=== PATIENT | male | born 1965 | race Caucasian/White ===

== ENCOUNTER 2016-10-28 19:59 | Emergency (ER) | payer OTHER ==
[~2016-10-28] VITALS: Ht 177.8 cm; Wt 88.0 kg
[~2016-10-28 19:59] MED LIST: GABA300C3 PO; GLIP5 PO; GLUCTAB PO; LAMO200T PO; LORTA10 PO; NAPR500 PO; OMEP20TA PO; PERC10TA27 PO; PROM25TA5 PO; SILD20 PO; WELL150T PO; XANA0.5T PO; ZOCO40TA PO; ZOFR4TAB3 SL
[2016-10-28 20:14] VITALS: BP 205/119; PULSE 99; RESP 20; TEMP 98.7; O2SAT 100
[2016-10-28] MEDS ORDERED: ALUMINUM/MAGNESIUM/SIMETH 30 ML CUP PO ONE (22:15)
[2016-10-28] MEDS ORDERED: SODIUM CHLOR 0.9% 1000 ML INJ 1,000 ML IV ONE (22:15)
[2016-10-28] MEDS ORDERED: SODIUM CHLORIDE 0.9% FLUSH 10 ML FLUSH IV FLUSH PRN (22:15)
[2016-10-28] MEDS ORDERED: LIDOCAINE VISCOUS 2% SOLN 15 ML UDC PO ONE (22:15)
[2016-10-28] MEDS ORDERED: diphenhydrAMINE HCL 50 MG/ML VIAL IV PUSH ONE (22:30)
[2016-10-28] MEDS ORDERED: PROCHLORPERAZINE INJ 10 MG/2 ML VIAL IV PUSH ONE (22:30)
[2016-10-28 22:59] LABS: AUTOMATED NEUTROPHIL # 6.3 TH/MM3 (1.8-7.7); BASOPHIL % 0.2 % (0.0-2.0); HEMATOCRIT 42.9 % (39.0-51.0); HEMO FLAGS DIFF FINAL; LYMPH % 9.5 % (9.0-44.0); LYMPHOCYTE # 0.7 TH/MM3 (1.0-4.8); MEAN CELL VOLUME 101.2 FL (80.0-100.0); MEAN CORPUSCULAR HGB CONC 33.6 % (32.0-36.0); MONO % 5.9 % (0.0-8.0); NEUT % 84.4 % (16.0-70.0); PLATELET COUNT 262 TH/MM3 (150-450); RED BLOOD COUNT 4.23 MIL/MM3 (4.50-5.90); RED CELL DISTRIBUTION WIDTH 12.6 % (11.6-17.2); WHITE BLOOD COUNT 7.5 TH/MM3 (4.0-11.0)
[2016-10-28 23:18] LABS: ANION GAP 13 MEQ/L (5-15); AST (GOT) 62 U/L (15-37); BICARBONATE 25.2 MEQ/L (21.0-32.0); BLOOD UREA NITROGEN 13 MG/DL (7-18); CHLORIDE 99 MEQ/L (98-107); GLOMERULAR FILTRATION RATE 66 ML/MIN (>89); POTASSIUM 5.6 MEQ/L (3.5-5.1); SODIUM (NA) 137 MEQ/L (136-145)
[2016-10-28 23:19] LABS: ALKALINE PHOSPHATASE 80 U/L (45-117); ALT (GPT) 34 U/L (12-78)
[2016-10-29] MEDS ORDERED: MORPHINE SULFATE 4 MG/ML INJ IV PUSH ONE
[2016-10-29 00:41] LABS: BICARBONATE 23.1 MEQ/L (21.0-32.0); POTASSIUM 4.6 MEQ/L (3.5-5.1)
[2016-10-29 00:56] LABS: CALCIUM-PROTEIN CORRECTED 7.4 MG/DL (8.5-10.1)
[2016-10-29] MEDS ORDERED: FAMO1TAB37 PO (00:58)
--- NOTE | 2016-10-29 00:59 | PD ---
HPI Chief Complaint: Abdominal Pain Time Seen by Provider: 22:13 Travel History International Travel<30 days: No Contact w/Intl Traveler<30days: No Traveled to known affect area: No History of Present Illness HPI 51-year-old male complains of epigastric abdominal pain consistent with gastric ulcers. Pain is constant. It's worse with palpation. Nausea reported. No fever. Similar episodes have occurred in the past and seemed to be correlated with personal stress and anxiety. He reports a lot of personal stress and anxiety lately. PFSH Past Medical History Arthritis: Yes Blood Disorders: No Bipolar Disorder: Yes Anxiety: Yes Depression: Yes Heart Rhythm Problems: No Cardiovascular Problems: Yes (HTN) High Cholesterol: Yes (BORDERLINE) Chest Pain: No Congestive Heart Failure: No Diabetes: Yes (Metformin & Glipizide) Patient Takes Glucophage: Yes Diminished Hearing: No Endocrine: Yes Gastrointestinal Disorders: Yes (HX OF GASTRITIS 2006) Gout: Yes Genitourinary: No Hypertension: Yes Immune Disorder: No Musculoskeletal: Yes (ARTHRITIS IN FOOT) Neurologic: No Reproductive: No Respiratory: No Integumentary: Yes (ECZEMA) Thyroid Disease: No Ulcer: Yes Influenza Vaccination: Yes Past Surgical History Tonsillectomy: Yes Other Surgery: Yes (TONSILECTOMY) Social History Alcohol Use: Yes Tobacco Use: No Substance Use: No (DENIES) Allergies-Medications (Allergen,Severity, Reaction): Coded Allergies: Codeine (Verified Allergy, Unknown, 12/12/15) Reported Meds & Prescriptions Reported Meds & Active Scripts Active Pepcid (Famotidine) 20 Mg Tab 20 Mg PO BID PRN Percocet 10-325 mg (Oxycodone-Acetaminophen 10-325 mg) 1 Tab 1 Tab PO Q4-6H PRN Zocor 40 mg (Simvastatin) 40 Mg Tab 1 Tab PO HS Gabapentin 300 Mg Cap 300 Mg PO BID Zofran ODT (Ondansetron HCl) 4 Mg Tab 4 Mg SL Q6 FOR NAUSEA/VOMITING Omeprazole 20 mg (Omeprazole) 20 Mg Tab 20 Mg PO DAILY 30 Days Glipizide 5 Mg Tab 5 Mg PO BID 30 Days Glucophage XR 24 HR (Metformin HCl) 500 Mg Tab 500 Mg PO BID 30 Days Lamictal (Lamotrigine) 200 Mg Tab 200 Mg PO DAILY 30 Days Xanax 0.5 mg (Alprazolam) Alprazolam 0.5 mg Tab 1 Tab PO BID PRN 14 Days Wellbutrin Sr (Bupropion HCl) 150 Mg Tab 150 Mg PO Q12H 30 Days Phenergan (Promethazine HCl) 25 Mg Tab 25 Mg PO Q6 PRN Reported Revatio (Sildenafil Citrate) 20 Mg Tab 20 Mg PO TID Naprosyn (Naproxen) 500 Mg Tab 500 Mg PO DIRECTED PRN Hydrocodone/Acetaminophen 10 mg/325 mg 1 Tab 1 Tab PO BID PRN Review of Systems Except as stated in HPI: all other systems reviewed are Neg Physical Exam Narrative GENERAL: 51-year-old male well-nourished well-developed mild to moderate distress SKIN: Focused skin assessment warm/dry. HEAD: Atraumatic. Normocephalic. EYES: Pupils equal and round. No scleral icterus. No injection or drainage. ENT: No nasal bleeding or discharge. Mucous membranes pink and moist. NECK: Trachea midline. No JVD. CARDIOVASCULAR: Regular rate and rhythm. No murmur appreciated. RESPIRATORY: No accessory muscle use. Clear to auscultation. Breath sounds equal bilaterally. GASTROINTESTINAL: Minimal epigastric tenderness. Soft. MUSCULOSKELETAL: No obvious deformities. No clubbing. No cyanosis. No edema. NEUROLOGICAL: Awake and alert. No obvious cranial nerve deficits. Motor grossly within normal limits. Normal speech. PSYCHIATRIC: Appropriate mood and affect; insight and judgment normal. Data Data Last Documented VS Vital Signs Date Time Temp Pulse Resp B/P Pulse Ox O2 Delivery O2 Flow Rate FiO2 10/29/16 01:20 88 16 164/90 97 Room Air 10/28/16 20:14 98.7 Vital signs reviewed Orders Complete Blood Count With Diff (10/28/16 22:13) Comprehensive Metabolic Panel (10/28/16 22:13) Lipase (10/28/16 22:13) Lactic Acid (10/28/16 22:13) Iv Access Insert/Monitor (10/28/16 22:13) Ecg Monitoring (10/28/16 22:13) Oximetry (10/28/16 22:13) Sodium Chloride 0.9% Flush (Ns Flush) (10/28/16 22:15) Al-Mag Hy-Si 40-40-4 Mg/Ml Liq (Mag-Al P (10/28/16 22:15) Lidocaine 2% Viscous (Xylocaine 2% Visco (10/28/16 22:15) Sodium Chlor 0.9% 1000 Ml Inj (Ns 1000 M (10/28/16 22:15) Prochlorperazine Inj (Compazine Inj) (10/28/16 22:30) Diphenhydramine Inj (Benadryl Inj) (10/28/16 22:30) Basic Metabolic Panel (Bmp) (10/28/16 23:25) Lactic Acid (10/28/16 23:25) Morphine Inj (Morphine Inj) (10/29/16 00:00) Protein Corrected Calcium(Pcc) (10/28/16 23:00) Labs Laboratory Tests Test 10/28/16 10/28/16 10/28/16 22:30 23:00 23:56 White Blood Count 7.5 TH/MM3 Red Blood Count 4.23 MIL/MM3 Hemoglobin 14.4 GM/DL Hematocrit 42.9 % Mean Corpuscular Volume 101.2 FL Mean Corpuscular Hemoglobin 34.0 PG Mean Corpuscular Hemoglobin 33.6 % Concent Red Cell Distribution Width 12.6 % Platelet Count 262 TH/MM3 Mean Platelet Volume 7.2 FL Neutrophils (%) (Auto) 84.4 % Lymphocytes (%) (Auto) 9.5 % Monocytes (%) (Auto) 5.9 % Eosinophils (%) (Auto) 0.0 % Basophils (%) (Auto) 0.2 % Neutrophils # (Auto) 6.3 TH/MM3 Lymphocytes # (Auto) 0.7 TH/MM3 Monocytes # (Auto) 0.4 TH/MM3 Eosinophils # (Auto) 0.0 TH/MM3 Basophils # (Auto) 0.0 TH/MM3 CBC Comment DIFF FINAL Differential Comment Sodium Level 137 MEQ/L 139 MEQ/L Potassium Level 5.6 MEQ/L 4.6 MEQ/L Chloride Level 99 MEQ/L 108 MEQ/L Carbon Dioxide Level 25.2 MEQ/L 23.1 MEQ/L Anion Gap 13 MEQ/L 8 MEQ/L Blood Urea Nitrogen 13 MG/DL 12 MG/DL Creatinine 1.16 MG/DL 0.87 MG/DL Estimat Glomerular Filtration 66 ML/MIN 92 ML/MIN Rate Random Glucose 285 MG/DL 238 MG/DL Lactic Acid Level 3.0 mmol/L 1.9 mmol/L Calcium Level 9.9 MG/DL 7.4 MG/DL Total Bilirubin 1.0 MG/DL Aspartate Amino Transf 62 U/L (AST/SGOT) Alanine Aminotransferase 34 U/L (ALT/SGPT) Alkaline Phosphatase 80 U/L Total Protein 9.0 GM/DL 7.1 GM/DL Albumin 4.4 GM/DL Lipase 88 U/L Protein Corrected Calcium 7.4 MG/DL MDM Medical Decision Making Medical Screen Exam Complete: Yes Emergency Medical Condition: Yes Medical Record Reviewed: Yes Differential Diagnosis Constipation, Gastritis, Acute Cholecystitis, Biliary Colic, Pancreatitis, AMATO , Hepatitis, Bowel Obstruction, Cystitis, Mesenteric Ischemia, AAA, Appendicitis , Renal Stone/Hydronephrosis, GERD, perforated viscous Narrative Course CBC & BMP Diagram 10/28/16 22:30 10/28/16 23:00 LFTs are essentially normal There is an elevation lactic acid at 3.0 however this was considered most likely due to tourniquet time Repeat lactic acid was 1.9. The patient is resting comfortably and feels better, is alert and in no distress. The patients results and examination findings were discussed. The repeat examination is unremarkable and benign. The history, exam, diagnostic testing, and current condition do not suggest any significant pathology to warrant further testing, continued ED treatment, admission, or surgical evaluation at this point. The vital signs have been stable. The patient does not have uncontrollable pain, intractable vomiting, or other significant symptoms. The patient's condition is stable and appropriate for discharge. The patient will pursue further outpatient evaluation with a primary care physician or other designated or consulting physician as indicated in the discharge instructions. The patient expressed understanding and was agreeable with this plan. Diagnosis Primary Impression: Gastritis Qualified Code: K29.70 - Gastritis without bleeding, unspecified chronicity, unspecified gastritis type Referrals: Daisy Chambers MD 2 days Additional Instructions: You have a choice when it comes to health care, and we are glad that you chose [facility]. Hopefully, we have met your expectations on today's visit. You are welcome to return to [facility] at any time, as we are committed to meeting the health care needs of our community. Med/Other Pt SpecificInfo: Prescription(s) given Scripts Famotidine (Pepcid)20 Mg Tab20 Mg PO BID PRN (REFLUX) #60 TAB Ref 0 Prov:Anton Alfaro MD 10/29/16 Disposition: 01 DISCHARGE HOME Condition: Stable Anton Alfaro MD Oct 29, 2016 00:59
[2016-10-29 01:20] VITALS: BP 164/90; PULSE 88; RESP 16; O2SAT 97
== END 2016-10-29 01:20 | disposition home or self-care (01) ==
LOC: NEPC 19:59
DX: K29.70 Gastritis, unspecified, without bleeding (principal); Z87.11 Personal history of peptic ulcer disease; I10 Essential (primary) hypertension; E78.00 Pure hypercholesterolemia, unspecified; E11.9 Type 2 diabetes mellitus without complications; F31.9 Bipolar disorder, unspecified; Z79.84 Long term (current) use of oral hypoglycemic drugs; M19.90 Unspecified osteoarthritis, unspecified site
CPT/HCPCS: 80048; 80053; 83605; 83690; 84155; 85025; 96361; 96374; 96375; 99283; J0780; J1200; J2270; J7030

== ENCOUNTER 2017-07-13 09:38 | Emergency (ER) | payer OTHER ==
[~2017-07-13] VITALS: Ht 177.8 cm; Wt 85.0 kg
[~2017-07-13 09:38] MED LIST changes: +FAMO1TAB37 PO
[2017-07-13 09:53] VITALS: BP 127/75; PULSE 90; RESP 20; TEMP 97.8; O2SAT 97
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
[2017-07-13] MEDS ORDERED: TETANUS/DIPHTHERIA TOXOID ADULT 0.5 ML VIAL IM ONE (10:45)
[2017-07-13 11:49] LABS: AUTOMATED NEUTROPHIL # 5.8 TH/MM3 (1.8-7.7); BASOPHIL % 0.1 % (0.0-2.0); EOSINOPHIL % 0.3 % (0.0-4.0); HEMATOCRIT 34.6 % (39.0-51.0); HEMOGLOBIN 11.9 GM/DL (13.0-17.0); LYMPH % 12.5 % (9.0-44.0); LYMPHOCYTE # 0.9 TH/MM3 (1.0-4.8); MEAN CORPUSCULAR HEMOGLOBIN 35.4 PG (27.0-34.0); MEAN CORPUSCULAR HGB CONC 34.4 % (32.0-36.0); MEAN PLATELET VOLUME 6.8 FL (7.0-11.0); MONO % 8.7 % (0.0-8.0); MONOCYTE # 0.6 TH/MM3 (0-0.9); NEUT % 78.4 % (16.0-70.0); PLATELET COUNT 218 TH/MM3 (150-450); RED BLOOD COUNT 3.36 MIL/MM3 (4.50-5.90); RED CELL DISTRIBUTION WIDTH 13.1 % (11.6-17.2); WHITE BLOOD COUNT 7.4 TH/MM3 (4.0-11.0)
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
[2017-07-13 11:55] LABS: PROTHROMBIN TIME - PATIENT 9.7 SEC (9.8-11.6)
[2017-07-13 12:10] LABS: BICARBONATE 25.2 MEQ/L (21.0-32.0); CALCIUM 8.9 MG/DL (8.5-10.1); CREATININE 0.79 MG/DL (0.60-1.30)
[2017-07-13] MEDS ORDERED: IOHEXOL 350 MG/ML 10 ML VIAL (for RAD DIAG) IVCONTRAST ONE (13:00)
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
[2017-07-13] MEDS ORDERED: IBUP-232 PO (13:58)
[2017-07-13] MEDS ORDERED: LIDO1ADH4 TOPICAL (13:58)
[2017-07-13] MEDS ORDERED: traMADol HCL 50 MG TAB PO ONE (14:00)
[2017-07-13] MEDS ORDERED: LIDOCAINE HCL 1% 30 ML VIAL INFIL ONE (14:00)
[2017-07-13] MEDS ORDERED: KETOROLAC TROMETHAMINE 30 MG/ML (IVP) VIAL IV PUSH ONE (14:00)
[2017-07-13] MEDS ORDERED: LIDOCAINE HCL 1% PF 30 ML VIAL INFIL ONE (14:15)
[2017-07-13] MEDS ORDERED: CEPH-460 PO (14:43)
--- NOTE | 2017-07-13 14:44 | PD ---
Physical Exam Date Seen by Provider: Jul 13, 2017 Time Seen by Provider: 14:41 Narrative I was asked by Dr. Ortiz to repair laceration to the patient's face and left hand. Please see his documentation for full history and physical. Data Data Last Documented VS Vital Signs Date Time Temp Pulse Resp B/P (MAP) Pulse Ox O2 Delivery O2 Flow Rate FiO2 07/13/17 09:53 97.8 90 20 127/75 (92) 97 Orders Orders Tetanus/Diphtheria Tox Adult (Tetanus/Di (07/13/17 10:45) Complete Blood Count With Diff (07/13/17 10:33) Basic Metabolic Panel (Bmp) (07/13/17 10:33) Prothrombin Time / Inr (Pt) (07/13/17 10:33) Act Partial Throm Time (Ptt) (07/13/17 10:33) Ct Brain W/O Iv Contrast(Rout) (07/13/17 10:33) Iv Access Insert/Monitor (07/13/17 10:33) Ecg Monitoring (07/13/17 10:33) Oximetry (07/13/17 10:33) Ct Abd/Pel W Iv Contrast(Rout) (07/13/17 10:33) Ct Facial Bones W/O Iv Cont (07/13/17 10:33) Hand, Complete ([id number]) (07/13/17 10:33) Ct Thorax/ Chest W Iv Contrast (07/13/17 10:33) Iohexol 350 Inj (Omnipaque 350 Inj) (07/13/17 13:00) Tramadol (Ultram) (07/13/17 14:00) Ketorolac Inj (Toradol Inj) (07/13/17 14:00) Lidocaine Pf 1% Inj (Xylocaine-Mpf 1% In (07/13/17 14:15) Ed Discharge Order (07/13/17 14:40) Labs Laboratory Tests Test 07/13/17 11:20 White Blood Count 7.4 TH/MM3 Red Blood Count 3.36 MIL/MM3 Hemoglobin 11.9 GM/DL Hematocrit 34.6 % Mean Corpuscular Volume 103.0 FL Mean Corpuscular Hemoglobin 35.4 PG Mean Corpuscular Hemoglobin Concent 34.4 % Red Cell Distribution Width 13.1 % Platelet Count 218 TH/MM3 Mean Platelet Volume 6.8 FL Neutrophils (%) (Auto) 78.4 % Lymphocytes (%) (Auto) 12.5 % Monocytes (%) (Auto) 8.7 % Eosinophils (%) (Auto) 0.3 % Basophils (%) (Auto) 0.1 % Neutrophils # (Auto) 5.8 TH/MM3 Lymphocytes # (Auto) 0.9 TH/MM3 Monocytes # (Auto) 0.6 TH/MM3 Eosinophils # (Auto) 0.0 TH/MM3 Basophils # (Auto) 0.0 TH/MM3 CBC Comment DIFF FINAL Differential Comment Prothrombin Time 9.7 SEC Prothromb Time International Ratio 1.0 RATIO Activated Partial Thromboplast Time 24.5 SEC Blood Urea Nitrogen 9 MG/DL Creatinine 0.79 MG/DL Random Glucose 173 MG/DL Calcium Level 8.9 MG/DL Sodium Level 138 MEQ/L Potassium Level 4.6 MEQ/L Chloride Level 102 MEQ/L Carbon Dioxide Level 25.2 MEQ/L Anion Gap 11 MEQ/L Estimat Glomerular Filtration Rate 103 ML/MIN MDM Supervised Visit with REINALDO: No Procedures Procedure Narrative LACERATION LOCATION: Face LENGTH: 2 cm NUMBER OF STITCHES/JOSÉ: Dermabond REPAIR: The area of the laceration was prepped with Betadine and sterilely draped. The wound was copiously irrigated and explored without evidence of foreign body, tendon injury or neurovascular injury. The wound was closed using Dermabond. This was a single layer repair. A sterile dressing was applied. The patient was advised to keep the dressing clean and dry. Patient tolerated the procedure well. LACERATION LOCATION: Left volar hand LENGTH: 2 cm NUMBER OF STITCHES/JOSÉ: 3 simple interrupted sutures REPAIR: The area of the laceration was prepped with Betadine and sterilely draped. The laceration was infiltrated with .1% lidocaine The wound was copiously irrigated and explored without evidence of foreign body, tendon injury or neurovascular injury. The wound was closed using 4-0 Prolene. This was a single layer repair. A sterile dressing was applied. The patient was advised to keep the dressing clean and dry. Patient tolerated the procedure well. Diagnosis Primary Impression: Fracture of rib of left side Qualified Codes: S22.32XA - Fracture of one rib, left side, initial encounter for closed fracture Additional Impressions: Facial laceration Qualified Codes: S01.81XA - Laceration without foreign body of other part of head, initial encounter Laceration of left hand Qualified Codes: S61.412A - Laceration without foreign body of left hand, initial encounter Patient Instructions: General Instructions Additional Instruction: Wound care daily. Head trauma instructions given. Suture removal in 10 days. Scripts Lidocaine (Lidoderm) 5 % Adh..patch 1 PATCH TOPICAL DAILY for Pain, #20 Prov: Mook Ortiz MD 07/13/17 Ibuprofen (Ibuprofen) 600 Mg Tab 600 MG PO TID for Pain, #60 TAB 0 Refills Prov: Mook Ortiz MD 07/13/17 Disposition: 01 DISCHARGE HOME Condition: Stable Marisa Green KIRK Jul 13, 2017 14:44
== END 2017-07-13 14:50 | disposition home or self-care (01) ==
LOC: NEPC 09:38
DX: S22.32XA Fracture of one rib, left side, initial encounter for closed fracture (principal); S01.81XA Laceration without foreign body of other part of head, initial encounter; S61.412A Laceration without foreign body of left hand, initial encounter; R07.89 Other chest pain; I10 Essential (primary) hypertension; E11.9 Type 2 diabetes mellitus without complications; Z88.5 Allergy status to narcotic agent; Y29.XXXA Contact with blunt object, undetermined intent, initial encounter
CPT/HCPCS: 12001; 12011; 70450; 70486; 71260; 73130; 74177; 80048; 85025; 85610; 85730; 90471; 90714; 99285; J1885; Q9967

== ENCOUNTER 2017-10-13 09:57 | Inpatient (IN) ==
[2017-10-13] MEDS ORDERED: Haloperidol Inj 5 MG/ML Ampul IM ONE (10:52)
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
[2017-10-13 11:05] LABS: Baso % (Auto) 0.3 % (0.0-2.0); Eos % (Auto) 0.6 % (0.0-4.0); Hematocrit 34.3 % (39.0-51.0); Hemoglobin 11.7 gm/dL (13.0-17.0); Lymph # (Auto) 1.4 th/mm3 (1.0-4.8); Lymph % (Auto) 19.9 % (9.0-44.0); Mean Corpuscular HGB Conc 34.1 % (32.0-36.0); Mean Corpuscular Hemoglobin 35.1 pg (27.0-34.0); Mean Corpuscular Volume 103.1 fL (80.0-100.0); Mean Platelet Volume 7.6 fL (7.0-11.0); Mono # (Auto) 0.8 th/mm3 (0.0-0.9); Mono % (Auto) 10.6 % (0.0-8.0); Neut # (Auto) 4.9 th/mm3 (1.8-7.7); Neut % (Auto) 68.6 % (16.0-70.0); Platelet Count 220 th/mm3 (150-450); Red Blood Count 3.32 mil/mm3 (4.50-5.90); Red Cell Distribution Width 12.5 % (11.6-17.2); White Blood Count 7.2 th/mm3 (4.0-11.0)
--- NOTE | 2017-10-13 11:08 | ED ---
HPI - Psych - General Chief Complaint: Psychiatric Symptoms Stated Complaint: Psych Eval/DBPD - Related Data Home Medications Medication Instructions Recorded Confirmed bupropion HCl 150 mg PO QAM 10/13/17 10/13/17 lamotrigine 200 mg PO DAILY 10/13/17 10/13/17 lisinopril 10 mg PO DAILY 10/13/17 10/13/17 metformin 500 mg PO BID 10/13/17 10/13/17 omeprazole 20 mg PO DAILY 10/13/17 10/13/17 Allergies Allergy/AdvReac Type Severity Reaction Status Date / Time codeine Allergy Unknown Vomiting Verified 10/13/17 10:04 PMFSH - History History Provided By: Patient - Medical History Medical History: Medical History (Last Updated 10/13/17 @ 10:06 by Natalia Calix) Diabetes Hypertension Manic depression Schizophrenia - Surgical History Surgical History: Surgical History (Last Updated 10/13/17 @ 10:07 by Natalia Calix) No history of previous surgery - Tobacco History Second Hand Smoke Exposure: Yes Tobacco Use In Past 30 Days: Yes Smoking Status: Current some day smoker Tobacco Type: Smokeless Tobacco - Alcohol History How Often Do You Have a Drink Containing Alcohol: Never - Substance Use History Substance History: No History of Abuse - Travel History Recent Travel in the [place] Within the Last 8 Weeks: No Recent Travel Out of the Country Within the Last 8 Weeks: No - Immunization History Tetanus Immunization: >5 Years Hx Influenza Vaccine This Season: Yes Psychiatric History - Psychiatric History Psychiatric Treatment History: History of Psychiatric Treatment, History Substance Abuse Treatment, History of Hospitalization in a Psychiatric Facility , History of Community Mental Health Treatment Initial Documented Vital Signs Temperature 97.8 F 10/13/17 10:05 Pulse Rate 112 H 10/13/17 10:05 Respiratory Rate 10/13/17 10:05 Blood Pressure 178/103 H 10/13/17 10:05 Pulse Oximetry 100 10/13/17 10:05 Last Documented Vital Signs Temperature 97.8 F 10/13/17 10:05 Pulse Rate 112 H 10/13/17 10:05 Respiratory Rate 20 10/13/17 10:05 Blood Pressure 178/103 H 10/13/17 10:05 Pulse Oximetry 100 10/13/17 10:05
[2017-10-13 11:18] LABS: Alanine Aminotransferase 20 U/L (12-78); Albumin 4.6 g/dL (3.4-5.0); Anion Gap 12 meq/L (5-15); Aspartate Aminotransferase 18 U/L (15-37); Blood Urea Nitrogen 11 mg/dL (7-18); Calcium 9.1 mg/dL (8.5-10.1); Carbon Dioxide 24.5 meq/L (21.0-32.0); Chloride 102 meq/L (98-107); Glomerular Filtration Rate 77 mL/min (>89); Glucose,Random 251 mg/dL (74-106); Potassium 3.8 meq/L (3.5-5.1); Sodium 138 meq/L (136-145)
[2017-10-13 11:28] LABS: Alkaline Phosphatase 91 U/L (45-117); Total Protein 7.9 g/dL (6.4-8.2)
[2017-10-13 14:57] LABS: Amphetamine Screen,Urine Neg (Neg); Barbiturate Screen,Urine Neg (Neg); Cannabinoid Screen,Urine Neg (Neg); Cocaine Screen,Urine Neg (Neg)
[2017-10-13 15:03] LABS: Opiate Screen,Urine Neg (Neg)
[2017-10-14] MEDS: Lisinopril 10 MG Tablet PO SCH (09:55)
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
[2017-10-14] MEDS ORDERED: buPROPion 150 MG XL 24 HR Tablet PO SCH (15:00)
--- NOTE | 2017-10-15 08:32 | P.HPPSY ---
Provisional Diagnosis Admission Date: October 14, 2017 12:28 [place].: 1. Bipolar disorder, presently depressed, moderate [place] II.: Deferred Competence Certification of Person's Competence To Provide Express and Informed Consent I have personally examined Ben Merrill, a person being served at [facility] on, October 15, 2017 0832. Express and informed consent means consent voluntarily given in writing, by a competent person, after sufficient explanation and disclosure of the subject matter involved to enable the person to make a knowing and willful decision without any element of force, fraud, deceit, duress, or other form of constraint or coercion. This person is 18 years of age or older, is not now known to be incompetent to consent to treatment with a guardian advocate, and does not have a health care surrogate or proxy currently making medical treatment decisions. I have found this person to be one of the following: [X] Competent to provide express and informed consent, as defined above, for voluntary admission to this facility and is competent to provide express and informed consent for treatment. He/she has the consistent capacity to make well reasoned, willful, and knowing decisions concerning his or her medical or mental health treatment. The person fully and consistently understands the purpose of the admission for examination/placement and is fully capable of personally exercising all rights assured under [place] [] Incompetent to provide express and informed consent to voluntary admission, and this is incompetent to provide express and informed consent to treatment. The person must be transferred to involuntary status and a petition for a guardian advocate filed with the Circuit Court. [] Refusing to provide express and informed consent to voluntary admission but is competent to provide express and informed consent for treatment. The person must be discharged or transferred to involuntary status. Form shall be completed within 24 hours of a person's arrival at the receiving facility and filed in the clinical record of each person: 1. Admitted on a voluntary basis 2. Permitted to provide express and informed consent to his/her own treatment 3. Allowed to transfer from involuntary to voluntary status 4. Prior to permitting a person to consent to his or her own treatment after having been previously found incompetent to consent to treatment. History of Present Illness Capacity: Has capacity Chief Complaint: Mood instability History of Present Illness: Mr. Merrill is 52-year-old male with a reported history of bipolar disorder versus schizophrenia who presents under [place] from [place] [facility]. Patient was evaluated by the psychiatric nurse practitioner in the ED, and I note that conflict with adolescent son is a stressor, although interestingly patient does not mention this in our interaction. Reviewing the electronic medical record, I note that the patient was admitted in [address] Quintana. Patient seen and examined with nurseRakesh. Chart reviewed. Case discussed with nursing staff. On my examination today, the patient says that he has been experiencing worsening mood instability 5 days. Sleep is poor. Appetite is good. Occasional hopeless and worthless feelings. He has also been "hearing shit, quotes." he also reports occasional command auditory hallucinations to " be aware of this or that." These voices occur inside his head and are intermittent. No reported command auditory hallucinations to hurt self/others. Denies SI or HI at this time. No delusions. No other mood symptoms. Remainder of the psychiatric ROS is negative. Past psychiatric history: Patient reports previous diagnoses as noted above. He follows at the [facility] clinic with Dr. Palmer. Most recent psychiatric admission was here under Dr. Quintana. He denies a history of suicide attempts and when asked about history of violent behavior he says "not so much." Outpatient medications include Wellbutrin 150 mg daily, Lamictal 200 mg at bedtime and Xanax. Family history: The patient reports that his sister has bipolar disorder. He denies a family history of suicide. Chemical dependency history: Patient denies any abuse of drugs or alcohol presently but does admit to having had an alcohol problem in the past. Social history: The patient has lived on the [facility] since 1993. He was 4 years ago. He has a 17-year-old son. He enjoys bicycling, going to the beach and sports as well as hunting. He denies any access to guns or firearms however saying that her friend has secured his weapons. 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 He served in the [employer]. When I ask about trauma history he will only say that this is "debatable." He does not describe any PTSD symptoms. The patient does not believe that his trauma history he has any bearing on his current presentation. He is a Religious. Past medical history: Patient reports a history of diabetes, hypertension, chronic pain, hepatitis C status post interferon treatment. - Inpatient Certification I certify that the inpatient services were ordered in accordance with Medicare regulations governing the order. This includes certification that hospital inpatient services are reasonable and necessary and in the case of services not specified as inpatient-only under 42 CFR 419.22(n), that they are appropriately provided as inpatient services in accordance to with the 2-midnight benchmark under 43 CFR 412.3(e) I certify that inpatient psychiatric hospital services are medically necessary. Evaluation and treatment and/or diagnostic testing are expected to improve the patient's condition. The patient needs on a daily basis, active treatment furnished directly by or requiring the supervision of inpatient psychiatric facility personnel. Estimated Total Length of Stay (Days): 7 (5-7) Plans for Post Hospital Care: Home Review of Systems All other systems reviewed negative except as stated in HPI PMFSH - History History Provided By: Patient - Medical History Medical History: Medical History (Last Reviewed 10/14/17 @ 14:31 by KIRK Llanes) Diabetes Hypertension Manic depression Schizophrenia - Surgical History Surgical History: Surgical History (Last Reviewed 10/14/17 @ 14:31 by KIRK Llanes) No history of previous surgery - Tobacco History Second Hand Smoke Exposure: Yes Tobacco Use In Past 30 Days: Yes Smoking Status: Former smoker Tobacco Type: Cigarettes - Alcohol History How Often Do You Have a Drink Containing Alcohol: Monthly or less - Substance Use History Substance History: Past History - Travel History Recent Travel in the USA Within the Last 8 Weeks: No Recent Travel Out of the Country Within the Last 8 Weeks: No - Immunization History Tetanus Immunization: >5 Years Hx Influenza Vaccine This Season: Yes Quality Measures - Patient Strengths Patient's strengths (minimum of 2): In a monitored setting. Verbally fluent. Medications and Allergies Active Medications: Active Medications Al Hydrox/Mg Hydrox/Simethicone (Mag-Al Plus Susp Liq) 30 ml PO Q6H PRN PRN Reason: DYSPEPSIA Bupropion HCl (Wellbutrin Sr) 150 mg PO DAILY JEMAL Diphenhydramine HCl (Benadryl) 50 mg PO HS PRN PRN Reason: INSOMNIA Hydroxyzine HCl (Atarax) 50 mg PO Q6H PRN PRN Reason: ANXIETY Lisinopril (Prinivil) 10 mg PO DAILY JEMAL Last Admin: 10/14/17 09:55 Dose: 10 mg Lisinopril (Prinivil) 10 mg PO DAILY [facility] Last Admin: 10/14/17 09:54 Dose: 500 mg Metformin HCl (Glucophage) 500 mg PO BID [facility] Non-Formulary Medication (Lamotrigine [Lamotrigine]) 200 mg PO DAILY [facility] Non-Formulary Medication (Omeprazole [Omeprazole]) 20 mg PO DAILY [facility] Allergies Allergy/AdvReac Type Severity Reaction Status Date / Time codeine Allergy Unknown Vomiting Verified 10/13/17 10:04 Home Medications Medication Instructions Recorded Confirmed Type bupropion HCl 150 mg PO QAM 10/13/17 10/13/17 History lamotrigine 200 mg PO DAILY 10/13/17 10/13/17 History lisinopril 10 mg PO DAILY 10/13/17 10/13/17 History metformin 500 mg PO BID 10/13/17 10/13/17 History omeprazole 20 mg PO DAILY 10/13/17 10/13/17 History Results - Labs CBC & Chem 7: 10/13/17 10:17 10/13/17 10:17 Labs: Laboratory Results - last 24 hr 10/14/17 09:59 POC Glucose 351 H Laboratories reviewed. Macrocytic anemia noted. Hyperglycemia noted. Decreased GFR noted. Exam Vital signs: Vital Signs 10/14/17 12:07 10/14/17 15:18 10/15/17 06:14 Temperature 98.7 F 97.4 F L Pulse Rate 93 H 108 H 90 Respiratory Rate 18 19 17 Blood Pressure 148/84 H 124/84 150/85 H Pulse Oximetry 98 Intake & Output 10/14/17 10/15/17 10/15/17 18:59 06:59 18:59 Weight 76.6 kg Other: Weight On Admission 76.6 kg Narrative: Physical exam completed by ED provider. On my examination today, the patient appears to be in no acute physical distress. No motor abnormalities noted. Labs and vital signs reviewed: Mental Status Examination Appearance: Appropriate Consciousness: Alert Orientation: x4 Motor Activity: Normal gait Speech: Unremarkable Language: Adequate Fund of Knowledge: Adequate Attention and Concentration: Adequate Memory: Unremarkable Mood: Other (Depressed) Affect: Other (Restricted) Thought Process & Associations: Intact, Logical, Linear Thought Content: Appropriate, Hallucinations Hallucination Type: Auditory, Command (No CAH to hurt self/others) Delusion Type: None Suicidal Ideation: No Suicidal Plan: No Suicidal Intention: No Homicidal Ideation: No Homicidal Plan: No Homicidal Intention: No Insight: Fair Judgment: Impulsive Assessment and Plan - Assessment (1) Bipolar affective disorder, depressed, moderate Code(s): F31.32 - Bipolar disorder, current episode depressed, moderate Status : Acute - Plan Plan: 52-year-old male with psychiatric history as detailed above who presents under a [place] act. On my examination today, the patient reports worsening mood instability, chiefly dysphoric for about the last 5 days. He has been off of his psychotropic medications for the same interval. Although he presently denies any suicidal or homicidal ideation, he has been experiencing possible psychotic symptoms (although he does note that the voices occur inside his head , and so this may constitute more of a internal dialog been a betsy amelia hallucination). In any event, the patient does seem to be in need of inpatient admission for stabilization and also to monitor for any impairments in safety. Admit inpatient. Voluntary status. Patient has been off of his Lamictal for 5 days. We are therefore forced to resume titration at the lowest dose, 25 mg at bedtime. I have explained the necessity of this adjustment to the patient. As this will not provide adequate mood stabilization, we will augment, perhaps temporarily, with Latuda 40 mg with dinner. Check EKG for QTC. I will continue the patient's Wellbutrin. No reported history of seizure disorder or eating disorder. I have reviewed the controlled substances database [employer] for patient's Xanax and Percocet, and I will prescribe these as documented in the database. R/B/A for medications discussed at length with patient. Diabetic diet. Sliding scale insulin. Check CBC and vitamin B12 for macrocytic anemia. Check a BMP, hemoglobin A1c and lipid panel. Vitals every shift. Counselor to see. Disposition planning. Estimated length of stay: 5-7 days. Justification for Continued Inpatient Stay: Med changes. Monitoring for impairment in safety. High risk for decompensation in less restrictive setting. Discharge Planning: Pending psychiatric stabilization Request Healthcare Surrogate/Guardian Advocate?: No
[2017-10-15] MEDS ORDERED: Dextrose 50% in Water 50 ML Vial IV.PUSH PRN (08:39)
[2017-10-15] MEDS ORDERED: Non-Formulary Drug (Lamotrigine [Lamotrigine] 200 MG) PO SCH (09:00)
[2017-10-15] MEDS ORDERED: Lisinopril 20 MG Tablet PO SCH (09:00)
[2017-10-15] MEDS: buPROPion 150 MG 12 HR Tablet PO SCH (09:12)
[2017-10-15] MEDS: Lisinopril 10 MG Tablet PO SCH (09:12)
[2017-10-15] MEDS: ALPRAZolam 0.5 MG Tablet PO PRN ×2 (10:32→20:39)
[2017-10-15] MEDS: oxyCODONE/Acetaminophen 10/325 Tablet PO PRN ×3 (10:33→20:38)
[2017-10-15] MEDS: Aluminum/Magnesium/Simethacone Susp 30 ML UDC PO PRN (10:35)
[2017-10-15] MEDS ORDERED: Acetaminophen 325 MG Tablet PO PRN (11:20)
[2017-10-15 11:29] LABS: Baso % (Auto) 0.3 % (0.0-2.0); Eos # (Auto) 0.1 th/mm3 (0.0-0.4); Eos % (Auto) 1.8 % (0.0-4.0); Hematocrit 36.8 % (39.0-51.0); Hemoglobin 12.4 gm/dL (13.0-17.0); Lymph # (Auto) 1.2 th/mm3 (1.0-4.8); Lymph % (Auto) 25.2 % (9.0-44.0); Mean Corpuscular HGB Conc 33.7 % (32.0-36.0); Mean Corpuscular Hemoglobin 34.7 pg (27.0-34.0); Mean Corpuscular Volume 102.9 fL (80.0-100.0); Mean Platelet Volume 7.5 fL (7.0-11.0); Mono # (Auto) 0.4 th/mm3 (0.0-0.9); Mono % (Auto) 9.2 % (0.0-8.0); Neut # (Auto) 2.9 th/mm3 (1.8-7.7); Neut % (Auto) 63.5 % (16.0-70.0); Platelet Count 220 th/mm3 (150-450); Red Blood Count 3.58 mil/mm3 (4.50-5.90); Red Cell Distribution Width 12.6 % (11.6-17.2); White Blood Count 4.6 th/mm3 (4.0-11.0)
[2017-10-15 11:52] LABS: Calcium 9.3 mg/dL (8.5-10.1); Carbon Dioxide 28.6 meq/L (21.0-32.0); Potassium 3.9 meq/L (3.5-5.1)
[2017-10-15 11:54] LABS: Chol/HDL Ratio 3.22 Ratio
[2017-10-15] MEDS: Insulin NovoLOG Aspart Correctional Sugar Inj SQ SCH ×2 (16:39→21:04)
--- NOTE | 2017-10-15 17:25 | P.CON ---
History of Present Illness Service: Hospitalist Consult date: 10/15/17 Requesting Physician: Ozzie Prado Reason for Consult: Medication management Primary Care Provider: No Primary Care Physician Family Provider: [facility] Chief Complaint: Mood instability; DM; hypertension. "I do not feel good" History of Present Illness: Patient is a 52-year-old white male with a past medical history that includes hypertension and diabetes. He was admitted under [place] act after making suicidal statements to the police. Psychiatric history includes bipolar disorder and schizophrenia. He has had a prior admit for exacerbation of these conditions in 2015. [facility] that they are managing his diabetes with metformin and possibly glipizide. His blood pressure is currently being controlled by lisinopril-he believes the dose is 10 mg but he is not sure. Admits to me that he has been having trouble keeping up with his medications and has poor control of his diabetes and high blood pressure. Denies any chest pain or shortness of breath. Denies any nausea vomiting or diarrhea. He has had a good appetite. Normal urination and bowel movements. Reports to me that he is using the time here to get himself "back together". Review of Systems All other systems reviewed negative except as stated in HPI PMFSH - History History Provided By: Patient, Medical Record - Medical History Medical History: Medical History (Last Reviewed 10/16/17 @ 14:20 by KIRK Baker) Diabetes Hypertension Manic depression Schizophrenia - Surgical History Surgical History: Surgical History (Last Reviewed 10/16/17 @ 14:20 by KIRK Baker) No history of previous surgery - Family History Family History: Family History (Last Reviewed 10/16/17 @ 14:21 by KIRK Baker) Other Family history unknown - Tobacco History Second Hand Smoke Exposure: Yes Tobacco Use In Past 30 Days: Yes Smoking Status: Former smoker Tobacco Type: Cigarettes - Alcohol History How Often Do You Have a Drink Containing Alcohol: Monthly or less - Substance Use History Substance History: Past History - Travel History Recent Travel in the [place] Within the Last 8 Weeks: No Recent Travel Out of the Country Within the Last 8 Weeks: No - Immunization History Tetanus Immunization: >5 Years Hx Influenza Vaccine This Season: Yes Medications and Allergies Active Medications: Active Medications Acetaminophen (Tylenol) 650 mg PO Q4H PRN PRN Reason: Pain 1-6 Al Hydrox/Mg Hydrox/Simethicone (Mag-Al Plus Susp Liq) 30 ml PO Q6H PRN PRN Reason: DYSPEPSIA Last Admin: 10/15/17 10:35 Dose: 30 ml Alprazolam (Xanax) 0.5 mg PO BID PRN PRN Reason: ANXIETY Last Admin: 10/15/17 10:32 Dose: 0.5 mg Bupropion HCl (Wellbutrin Sr) 150 mg PO DAILY [facility] Last Admin: 10/15/17 09:12 Dose: 150 mg Dextrose (D50w Vial) 50 ml IV.PUSH UNSCH PRN PRN Reason: PER HYPOGLYCEMIA PROTOCOL Glucagon (Glucagon Inj) 1 mg OTHER PRN PRN PRN Reason: for Hypoglycemia Protocol Insulin Aspart (Novolog Insulin Correctional Sugar Inj) 0 unit SQ ACHS [facility]; Protocol Last Admin: 10/15/17 16:39 Dose: 5 unit Lamotrigine (Lamictal) 25 mg PO HS [facility] Lisinopril (Prinivil) 10 mg PO DAILY [facility] Last Admin: 10/15/17 09:12 Dose: 10 mg Lurasidone HCl (Latuda) 40 mg PO AC DINNER [facility] Last Admin: 10/15/17 17:01 Dose: 40 mg Metformin HCl (Glucophage) 500 mg PO BIDPC [facility] Last Admin: 10/15/17 10:33 Dose: 500 mg Non-Formulary Medication (Omeprazole [Omeprazole]) 20 mg PO DAILY [facility] Oxycodone/Acetaminophen (Percocet 10/325 Mg) 1 tab PO TID PRN PRN Reason: Pain 7-10 Last Admin: 10/15/17 10:33 Dose: 1 tab Allergies Allergy/AdvReac Type Severity Reaction Status Date / Time codeine Allergy Unknown Vomiting Verified 10/13/17 10:04 Home Medications Medication Instructions Recorded Confirmed Type bupropion HCl 150 mg PO QAM 10/13/17 10/13/17 History lamotrigine 200 mg PO DAILY 10/13/17 10/13/17 History lisinopril 10 mg PO DAILY 10/13/17 10/13/17 History metformin 500 mg PO BID 10/13/17 10/13/17 History omeprazole 20 mg PO DAILY 07/19/18 07/19/18 History Physical Exam Vital signs: Vital Signs 10/15/17 06:14 Temperature 97.4 F L Pulse Rate 90 Respiratory Rate 17 Blood Pressure 150/85 H Pulse Oximetry 98 Intake & Output 10/14/17 10/15/17 10/15/17 18:59 06:59 18:59 Weight 76.6 kg Other: Weight On Admission 76.6 kg Narrative: GENERAL: Well-nourished, well-developed adult male in no obvious distress. SKIN: Warm and dry. HEAD: Atraumatic. Normocephalic. CARDIOVASCULAR: Regular rate and rhythm. RESPIRATORY: No accessory muscle use. Clear to auscultation. Breath sounds equal bilaterally. GASTROINTESTINAL: Abdomen soft, non-tender, non-distended. Positive bowel sounds. MUSCULOSKELETAL: Extremities without clubbing, cyanosis, or edema. No obvious deformities. NEUROLOGICAL: Awake and alert. No obvious cranial nerve deficits. Motor grossly within normal limits. Normal speech. PSYCHIATRIC: Appropriate mood and affect; insight and judgment impaired. Assessment and Plan - Assessment (1) HTN (hypertension) Code(s): I10 - Essential (primary) hypertension Status: Acute (2) Diabetes Code(s): E11.9 - Type 2 diabetes mellitus without complications Status: Acute - Plan Patient is a 52-year-old white male with a past medical history that includes hypertension and diabetes. He was admitted under Sal[place] act after making suicidal statements to the police. Psychiatric history includes bipolar disorder and schizophrenia. He has had a prior admit for exacerbation of these conditions in 2014. Hospitalist service has been consulted for medical management. Bipolar/schizophrenia -Managed by primary-psych Hypertension -Restart lisinopril 10 mg daily. If blood pressure not controlled consider increasing to 20 mg. Diabetes -Restart metformin 500 mg twice daily. -Sliding scale NovoLog while in hospital. -Evaluate A1c. DVT prophylaxis: Patient is ambulatory Discussed with: Patient and nurse (1) HTN (hypertension) Qualifiers: Hypertension type: essential hypertension Qualified Code(s): I10 - Essential (primary) hypertension (2) Diabetes Qualifiers: Diabetes mellitus type: type 2 Diabetes mellitus termite technician insulin use: without termite technician use Diabetes mellitus complication status: with unspecified complications Qualified Code(s): E11.8 - Type 2 diabetes mellitus with unspecified complications
[2017-10-15] MEDS: lamoTRIgine 25 MG TABLET PO SCH (20:38)
[2017-10-16] MEDS: oxyCODONE/Acetaminophen 10/325 Tablet PO PRN ×3 (06:42→22:27)
[2017-10-16] MEDS: Insulin NovoLOG Aspart Correctional Sugar Inj SQ SCH ×4 (08:35→17:14)
[2017-10-16] MEDS: Lisinopril 10 MG Tablet PO SCH (08:37)
[2017-10-16] MEDS: buPROPion 150 MG 12 HR Tablet PO SCH (08:37)
[2017-10-16] MEDS: Aluminum/Magnesium/Simethacone Susp 30 ML UDC PO PRN (09:49)
[2017-10-16 11:47] LABS: Hemoglobin A1c 9.6 % (4.3-6.0)
--- NOTE | 2017-10-16 13:19 | P.PNPSY ---
Subjective Chief Complaint: Mood instability Remarks: Reviewed electronic medical records and discussed case with staff. Follow-up was conducted in the day room. Nurse reports patient was transferred over from [address] and reports doing much better. He is hopeful for discharge tomorrow. Patient is requesting a nicotine patch which I shall order. He reports that he slept "better". That his appetite has been good. He denies any side effects from the medication and has no complaints today. Mental Status Examination Appearance: Appropriate Consciousness: Alert Orientation: x4 Motor Activity: Normal gait Speech: Unremarkable Language: Adequate Fund of Knowledge: Adequate Attention and Concentration: Adequate Memory: Unremarkable Mood: Other (Depressed) Affect: Other (Restricted) Thought Process & Associations: Intact, Logical, Linear Thought Content: Appropriate, Hallucinations Hallucination Type: Auditory, Command (No CAH to hurt self/others) Delusion Type: None Suicidal Ideation: No Suicidal Plan: No Suicidal Intention: No Homicidal Ideation: No Homicidal Plan: No Homicidal Intention: No Insight: Fair Judgment: Impulsive Assessment and Plan - Assessment (1) Schizophrenia Code(s): F20.9 - Schizophrenia, unspecified Status: Acute - Plan Plan: Patient will be reevaluated tomorrow by the attending psychiatrist. Continue with current treatment plan. Hopeful for discharge tomorrow. Justification for Continued Inpatient Stay: Moving this patient to a less restrictive environment would likely result in decompensation. Request Healthcare Surrogate/Guardian Advocate?: No
--- NOTE | 2017-10-16 14:33 | P.PN ---
Subjective Interval history: Patient is seen in break room. Tells me that he is doing well and feels like things are coming together for him. Denies any shortness of breath or chest pain. Denies any nausea vomiting or diarrhea. Reports that he is eating well. Normal urination and bowel movements. Physical Exam Vital signs: Vital Signs 10/15/17 18:20 10/15/17 22:17 10/16/17 05:43 Temperature 97.2 F L 98.7 F Pulse Rate 93 H 74 Respiratory Rate Blood Pressure 128/77 143/87 H Pulse Oximetry 95 98 Intake & Output 10/15/17 10/16/17 10/16/17 18:59 06:59 18:59 Intake Total 480 / 480 360 / 360 Balance 480 / 480 360 / 360 Intake: Oral 480 / 480 360 / 360 Other: Date of Last Bowel Movement 10/16/17 Narrative: GENERAL: Well-nourished, well-developed adult male in no obvious distress. SKIN: Warm and dry. HEAD: Atraumatic. Normocephalic. CARDIOVASCULAR: Regular rate and rhythm. RESPIRATORY: No accessory muscle use. Clear to auscultation. Breath sounds equal bilaterally. GASTROINTESTINAL: Abdomen soft, non-tender, non-distended. Positive bowel sounds. MUSCULOSKELETAL: Extremities without clubbing, cyanosis, or edema. No obvious deformities. NEUROLOGICAL: Awake and alert. No obvious cranial nerve deficits. Motor grossly within normal limits. Normal speech. PSYCHIATRIC: Appropriate mood and affect; upbeat mood; insight and judgment impaired. Results - Labs CBC & Chem 7: 10/15/17 10:39 10/15/17 10:39 Laboratory Results - last 24 hr 10/15/17 10/15/17 10/15/17 10:39 16:28 20:42 POC Glucose 284 H 190 H Hemoglobin A1c 9.6 H 10/16/17 10/16/17 06:03 11:30 POC Glucose 303 H 186 H Hemoglobin A1c Assessment and Plan - Assessment (1) HTN (hypertension) Code(s): I10 - Essential (primary) hypertension Status: Acute (2) Diabetes Code(s): E11.9 - Type 2 diabetes mellitus without complications Status: Acute - Plan Patient is a 52-year-old white male with a past medical history that includes hypertension and diabetes. He was admitted under Sal[place] act after making suicidal statements to the police. Psychiatric history includes bipolar disorder and schizophrenia. He has had a prior admit for exacerbation of these conditions in 2015. Hospitalist service has been consulted for medical management. Bipolar/schizophrenia -Managed by primary-psych Hypertension -Restart lisinopril 10 mg daily. If blood pressure not controlled consider increasing to 20 mg. Diabetes -Restart metformin 500 mg twice daily. -Sliding scale NovoLog while in hospital. -A1c 9.6. Patient noted to be nonadherent to medical plan. Encouraged to be consistent with his medications in order to control diabetes educated that and result of uncontrolled diabetes could be heart failure and/or kidney failure. Patient indicates understanding. DVT prophylaxis: Patient is ambulatory Discussed with: Patient and nurse (1) HTN (hypertension) Qualifiers: Hypertension type: essential hypertension Qualified Code(s): I10 - Essential (primary) hypertension (2) Diabetes Qualifiers: Diabetes mellitus type: type 2 Diabetes mellitus oil heaterman insulin use: without oil heaterman use Diabetes mellitus complication status: with unspecified complications Qualified Code(s): E11.8 - Type 2 diabetes mellitus with unspecified complications
--- NOTE | 2017-10-16 15:50 | ECG ---
Date Performed: 10/15/2017 Time Performed: 13:33:49 PTAGE: 52 years EKG: Sinus rhythm NORMAL ECG Since PREVIOUS TRACING , no significant change noted PREVIOUS TRACIN12/29/2013 09.39 DOCTOR: Umair Brown Interpretating Date/Time 10/16/2017 15:49:24
[2017-10-16] MEDS: lamoTRIgine 25 MG TABLET PO SCH (21:08)
[2017-10-17] MEDS: ALPRAZolam 0.5 MG Tablet PO PRN ×3 (00:04→22:54)
[2017-10-17] MEDS: oxyCODONE/Acetaminophen 10/325 Tablet PO PRN ×3 (05:57→20:30)
[2017-10-17] MEDS: Lisinopril 10 MG Tablet PO SCH (08:50)
[2017-10-17] MEDS: Insulin NovoLOG Aspart Correctional Sugar Inj SQ SCH ×5 (08:51→22:48)
[2017-10-17] MEDS: buPROPion 150 MG 12 HR Tablet PO SCH (08:51)
--- NOTE | 2017-10-17 10:14 | P.PN ---
Subjective Interval history: Patient is seen in rec room. He is trying to get some exercise by doing sit ups. Tells me that he is feeling well with no new concerns. No shortness of breath or chest pain. No nausea vomiting or diarrhea. Normal normal voiding and regular bowel movements. Physical Exam Vital signs: Vital Signs 10/16/17 18:01 10/17/17 05:37 Temperature 97.4 F L 98.2 F Pulse Rate 88 85 Respiratory Rate 18 18 Blood Pressure 119/72 128/77 Pulse Oximetry 98 96 Intake & Output 10/16/17 10/17/17 10/17/17 18:59 06:59 18:59 Intake Total 360 / 360 Balance 360 / 360 Weight 80.2 kg Intake: Oral 360 / 360 Other: Date of Last Bowel Movement 10/16/17 Narrative: GENERAL: Well-nourished, well-developed adult male in no obvious distress. SKIN: Warm and dry. CARDIOVASCULAR: Regular rate and rhythm. RESPIRATORY: No accessory muscle use. Clear to auscultation. Breath sounds equal bilaterally. GASTROINTESTINAL: Abdomen soft, non-tender, non-distended. Positive bowel sounds. MUSCULOSKELETAL: Extremities without clubbing, cyanosis, or edema. No obvious deformities. NEUROLOGICAL: Awake and alert. No obvious cranial nerve deficits. Motor grossly within normal limits. Normal speech. PSYCHIATRIC: Appropriate mood and affect; upbeat mood; insight and judgment improved. Results - Labs CBC & Chem 7: 10/15/17 10:39 10/15/17 10:39 Laboratory Results - last 24 hr 10/15/17 10/16/17 10/16/17 10:39 11:30 16:07 POC Glucose 186 H 327 H Hemoglobin A1c 9.6 H 10/16/17 10/17/17 21:10 07:25 POC Glucose 175 H 308 H Hemoglobin A1c Assessment and Plan - Assessment (1) HTN (hypertension) Code(s): I10 - Essential (primary) hypertension Status: Acute (2) Diabetes Code(s): E11.9 - Type 2 diabetes mellitus without complications Status: Acute - Plan Patient is a 52-year-old white male with a past medical history that includes hypertension and diabetes. He was admitted under Salas act after making suicidal statements to the police. Psychiatric history includes bipolar disorder and schizophrenia. He has had a prior admit for exacerbation of these conditions in 2014. Hospitalist service has been consulted for medical management. Bipolar/schizophrenia -Managed by primary-psych Hypertension -Restart lisinopril 10 mg daily. If blood pressure not controlled consider increasing to 20 mg. Diabetes; poorly controlled -Restarted metformin 500 BID -blood glucose remains inadequately controlled; -will increase to 1000 mg twice daily -Sliding scale NovoLog while in hospital. Increased from low-dose to medium dose on 10/17. -A1c 9.6. Patient noted to be nonadherent to medical plan. Encouraged to be consistent with his medications in order to control diabetes educated that and result of uncontrolled diabetes could be heart failure and/or kidney failure. Patient indicates understanding. DVT prophylaxis: Patient is ambulatory Discussed with: Patient and nurse Discharge planning: Patient will need to be discharged with prescriptions for both metformin and glipizide. (1) HTN (hypertension) Qualifiers: Hypertension type: essential hypertension Qualified Code(s): I10 - Essential (primary) hypertension (2) Diabetes Qualifiers: Diabetes mellitus type: type 2 Diabetes mellitus assisted insulin use: without extermination inspector use Diabetes mellitus complication status: with unspecified complications Qualified Code(s): E11.8 - Type 2 diabetes mellitus with unspecified complications
--- NOTE | 2017-10-17 17:42 | P.PNPSY ---
Subjective Chief Complaint: Mood instability Remarks: Patient seen for follow-up, chart reviewed. Discussion with nursing staff reported that the patient guarded, sleeping. Patient was found in day room noted B, cooperative. Patient state he been feeling "pretty good" stating that he recently got arrested and that his son was taken by the state and due to this recent event states that he was "hurting" [facility] ideations to his outpatient provider which she was then brought to the hospital for further evaluation and management. Patient states that he lives at home with a son but son is currently in juvenile group home and is not sure what will happen. Patient stated he is scheduled for court tomorrow for his recent incarceration. He states that his mood has been "pretty good" denies feeling depressed today, denies any perceptional services, denies any SI or HI. Patient states that he plans to continue treatment and continue outpatient follow[facility]. Review of Systems All other systems reviewed negative except as stated in HPI Mental Status Examination Appearance: Appropriate Consciousness: Alert Orientation: x4 Motor Activity: Normal gait Speech: Unremarkable Language: Adequate Fund of Knowledge: Adequate Attention and Concentration: Adequate Memory: Unremarkable Mood: Other ("pretty good") Affect: Appropriate Thought Process & Associations: Intact, Logical, Linear Thought Content: Appropriate Hallucination Type: None Delusion Type: None Suicidal Ideation: No Suicidal Plan: No Suicidal Intention: No Homicidal Ideation: No Homicidal Plan: No Homicidal Intention: No Insight: Fair Judgment: Impulsive Assessment and Plan - Assessment (1) Bipolar affective disorder, depressed, moderate Code(s): F31.32 - Bipolar disorder, current episode depressed, moderate Status : Acute - Plan Plan: Patient this time reporting less depressed mood, denying suicide ideations. Patient has recent psychosocial stressors which have brought him to have depressed mood and suicide ideations prior to his admission but states that he is managing better and plans on continuing medications and treatment along with outpatient follow-up. Patient states that he agrees to go straight to the [facility] to be reconnected to his outpatient psychiatrist upon discharge. Justification for Continued Inpatient Stay: At risk for further decompensation if at lower level of care. Request Healthcare Surrogate/Guardian Advocate?: No
[2017-10-17] MEDS ORDERED: lamoTRIgine 25 MG TABLET PO SCH ×2 (21:00)
[2017-10-18] MEDS: oxyCODONE/Acetaminophen 10/325 Tablet PO PRN (05:39)
[2017-10-18] MEDS ORDERED: glipiZIDE 5 MG Tablet PO SCH (07:00)
[2017-10-18] MEDS: Insulin NovoLOG Aspart Correctional Sugar Inj SQ SCH (08:24)
[2017-10-18] MEDS: Lisinopril 10 MG Tablet PO SCH (08:25)
[2017-10-18] MEDS ORDERED: buPROPion 150 MG 12 HR Tablet PO SCH (09:00)
--- NOTE | 2017-10-18 20:55 | P.DSPSY ---
Psychiatry Discharge Summary Inpatient Psychiatric care?: Yes Advance Directives: No Mental Health Advance Directive: No Health Care Proxy: No - Admission Admission Date: October 14, 2017 12:28 - Admission Diagnosis (1) Bipolar affective disorder, depressed, moderate Code(s): F31.32 - Bipolar disorder, current episode depressed, moderate Brief History: Mr. Merrill is 52-year-old male with a reported history of bipolar disorder versus schizophrenia who presents under [facility] from [facility]. Patient was evaluated by the psychiatric nurse practitioner in the ED, and I note that conflict with adolescent son is a stressor, although interestingly patient does not mention this in our interaction. Reviewing the electronic medical record, I note that the patient was admitted in [address] Quintana. Patient seen and examined with nurseRakesh. Chart reviewed. Case discussed with nursing staff. On my examination today, the patient says that he has been experiencing worsening mood instability 5 days. Sleep is poor. Appetite is good. Occasional hopeless and worthless feelings. He has also been "hearing shit, quotes." he also reports occasional command auditory hallucinations to " be aware of this or that." These voices occur inside his head and are intermittent. No reported command auditory hallucinations to hurt self/others. Denies SI or HI at this time. No delusions. No other mood symptoms. Remainder of the psychiatric ROS is negative. Past psychiatric history: Patient reports previous diagnoses as noted above. He follows at the [facility] clinic with Dr. Palmer. Most recent psychiatric admission was here under Dr. Quintana. He denies a history of suicide attempts and when asked about history of violent behavior he says "not so much." Outpatient medications include Wellbutrin 150 mg daily, Lamictal 200 mg at bedtime and Xanax. Family history: The patient reports that his sister has bipolar disorder. He denies a family history of suicide. Chemical dependency history: Patient denies any abuse of drugs or alcohol presently but does admit to having had an alcohol problem in the past. Social history: The patient has lived on the [place] side since 1993. He was 4 years ago. He has a 17-year-old son. He enjoys bicycling, going to the beach and sports as well as hunting. He denies any access to guns or firearms however saying that her friend has secured his weapons. 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 He served in the [employer] When I ask about trauma history he will only say that this is "debatable." He does not describe any PTSD symptoms. The patient does not believe that his trauma history he has any bearing on his current presentation. He is a [employer]. Past medical history: Patient reports a history of diabetes, hypertension, chronic pain, hepatitis C status post interferon treatment. Tobacco Use In Past 30 Days: Yes How Often Do You Have a Drink Containing Alcohol: Monthly or less Hospital Course: Mr. Merrill is 52-year-old male with a reported history of bipolar disorder versus schizophrenia, prior psychiatric admission, no prior suicide attempts who presents under [facility] for suicidal ideaiton which patient was admitted to the inpatient psychiatry for further evaluation and management. Patient restarted on lamotrigine 25mg daily, bupropion 150mg daily, and lurasidone 40mg daily along with medications for chronic medical illnesses which he tolerated well with no notable adverse drug reactions. Patient was noted with improvement in mood, noted to have denied having any suicidal ideations since admission. He was observed by staff to not have had any behavioral disturbances, not having made any suicidal or homicidal statements and maintained stable mood through admission and was noted to participate with staff adequately. Patient was noted to participate in self care, engaging with staff and maintaining adequate hygiene. Patient reported feeling more hopeful, future oriented and motivated to continue with outpatient follow up. Treatment team was able to set up outpatient follow up appointments which the patient can continue current medication regimen. Upon discharge patient stated that feeling good, reported feeling well with the treatment, as well as motivation to continue recommendations and denied any SI, HI, perceptual disturbances or delusions. Weighing the acute, chronic, and protective factors and based on the available evidence, I boiler service technician to a reasonable degree of medical certainty that the patient is at low imminent risk of harm to self or others from a mental illness as defined under the Salas act and level of function is adequate as observed on the unit for planned level of outpatient care. Patient was counseled regarding warning signs for need to return to the psychiatric emergency room as part of a general safety plan. Patient advised to call 911 or go nearest ED in case of emergency. Patient agreed with plan. - Discharge Discharge Date: 10/18/17 - Discharge Diagnosis (1) Bipolar affective disorder, depressed, moderate Code(s): F31.32 - Bipolar disorder, current episode depressed, moderate Status : Acute Discharge Disposition: Home - Discharge Instructions Discharge Diet: Heart Healthy Diet Activities You Can Perform: Regular- No Restrictions - Discharge Time > 30 minutes Mental Status Examination Appearance: Appropriate Consciousness: Alert Orientation: x4 Motor Activity: Normal gait Speech: Unremarkable Language: Adequate Fund of Knowledge: Adequate Attention and Concentration: Adequate Memory: Unremarkable Mood: Other ("pretty good") Affect: Appropriate Thought Process & Associations: Intact, Logical, Linear Thought Content: Appropriate Hallucination Type: None Delusion Type: None Suicidal Ideation: No Suicidal Plan: No Suicidal Intention: No Homicidal Ideation: No Homicidal Plan: No Homicidal Intention: No Insight: Fair Judgment: Impulsive Discharge/Advance Care Plan - Results Vital Signs: Last Vital Signs Temp 97.4 F L 10/18/17 05:33 Pulse 84 10/18/17 05:33 Resp 18 10/18/17 05:33 BP 129/90 10/18/17 05:33 Pulse Ox 98 10/18/17 05:33 Lab Results: Abnormal Lab Results 10/17/17 10/18/17 20:28 05:38 POC Glucose 179 H 268 H Laboratory Results Hemoglobin A1c 9.6 % (4.3-6.0) H 10/15/17 10:39 Triglycerides 325 mg/dL (42-150) H 10/15/17 10:39 Cholesterol 190 mg/dL (120-200) 10/15/17 10:39 LDL Cholesterol, Calc 66 mg/dL (0-99) 10/15/17 10:39 HDL Cholesterol 59.0 mg/dL (40.0-60.0) 10/15/17 10:39 TSH 1.550 uIU/mL (0.358-3.740) 10/13/17 10:17 Summary of Procedures: none Pending Results: None - Medications Number of antipsychotic medications at discharge: 0 - Discharge Care Plan Goals to Promote Your Health: * To prevent worsening of your condition and complications * To maintain your health at the optimal level Directions to Meet Your Goals: Take your medications as prescribed Follow your dietary instruction Follow activity as directed Keep your appointments as scheduled Take your immunizations and boosters as scheduled If your symptoms worsen call your PCP, if no PCP go to Urgent Care Center or Emergency Room For 18/10 questions related to your inpatient stay or results of tests pending at discharge, please contact Dr. Cody Troy MD at Smoking is Dangerous to Your Health. Avoid second hand smoking
== END 2017-10-18 10:15 | disposition home or self-care (01) ==
LOC: NEPJ 09:57 → NEDA 10-14 12:28 → H270 10-14 13:48 → H260 10-15 12:38
PROVIDERS: ADMIT Student in an Organized Health Care Education/Training Program; ATTEND Student in an Organized Health Care Education/Training Program